=== PATIENT | male | born 1965 | race Caucasian/White ===

== ENCOUNTER 2023-04-29 12:40 | Emergency (ER) | payer OTHER ==
[~2023-04-29] VITALS: Ht 175.3 cm; Wt 87.1 kg
[2023-04-29 13:27] LABS: BASOPHILS ABSOLUTE AUTO 0.06 K/mm3 (0.00-0.23); BASOPHILS PERCENT AUTO 1 % (0-2); EOSINOPHILS ABSOLUTE AUTO 0.21 K/mm3 (0.00-0.68); EOSINOPHILS PERCENT AUTO 2 % (0-6); Hematocrit 41.9 % (37.0-53.0); Hemoglobin 15.2 g/dL (13.5-17.5); IMMATURE GRAN ABSOLUTE AUTO 0.05 K/mm3 (0.00-0.10); IMMATURE GRAN PERCENT AUTO 0 % (0-1); LYMPHOCYTES ABSOLUTE AUTO 1.49 K/mm3 (0.84-5.20); LYMPHOCYTES PERCENT AUTO 12 % (21-46); MONOCYTES ABSOLUTE AUTO 0.77 K/mm3 (0.16-1.47); MONOCYTES PERCENT AUTO 6 % (4-13); Mean Corpuscular HGB 32.5 pg (26.0-34.0); Mean Corpuscular HGB Conc 36.3 g/dL (31.5-36.5); Mean Corpuscular Volume 90 fL (80-100); Mean Platelet Volume 9.1 fL (9.1-12.4); NEUTROPHILS ABSOLUTE AUTO 10.32 K/mm3 (1.96-9.15); NEUTROPHILS PERCENT AUTO 80 % (41-73); Platelet Count 212 K/mm3 (150-400); RDW Coefficient Variation 13.1 % (11.7-14.2); RDW Standard Deviation 42.4 fL (35.1-46.3); Red Blood Cell Count 4.67 M/mm3 (4.30-5.90)
[2023-04-29] MEDS ORDERED: Aspir 8181 MG PO (13:39)
[2023-04-29] MEDS ORDERED: MIRT30 PO (13:40)
[2023-04-29] MEDS ORDERED: Flecainide Acet50 MG PO (13:40)
[2023-04-29] MEDS ORDERED: BUSPIRONE HCL30 M1 PO (13:40)
[2023-04-29] MEDS ORDERED: METO25 (13:40)
[2023-04-29] MEDS ORDERED: FINA5 PO (13:41)
[2023-04-29] MEDS ORDERED: PANT40 (13:41)
[2023-04-29 13:47] LABS: Albumin, Blood 3.9 g/dL (3.4-5.0); Albumin/Globulin Ratio 1.1 (0.8-1.8); Bilirubin, Total 0.5 mg/dL (0.1-1.0); Bun/Creatinine Ratio 13.9 (12.0-20.0); Creatinine, Blood 1.08 mg/dL (0.60-1.20); Globulin, Blood 3.4 g/dL (2.2-4.0); Potassium, Blood 3.9 mmol/L (3.5-5.5); Total Protein, Blood 7.3 g/dL (6.4-8.2)
[2023-04-29 15:15] VITALS: BP 141/90
== END 2023-04-29 15:35 | disposition home or self-care (01) ==
LOC: ER 12:40
PROVIDERS: Physician Assistant
DX: R07.89 Other chest pain (principal); I48.91 Unspecified atrial fibrillation; Z88.5 Allergy status to narcotic agent; Z79.899 Other long term (current) drug therapy; Z79.82 Long term (current) use of aspirin
CPT/HCPCS: 71046; 80053; 83880; 84484; 85025; 85379; 93005; 93010; 96374; 99285-25; J1885

== ENCOUNTER 2023-05-25 08:42 | Emergency (ER) | payer OTHER ==
[~2023-05-25] VITALS: Ht 175.3 cm; Wt 86.2 kg
[~2023-05-25 08:42] MED LIST: Aspir 8181 MG PO; BUSPIRONE HCL30 M1 PO; FINA5 PO; Flecainide Acet50 MG PO; METO25 PO; MIRT30 PO; PANT40 PO
[2023-05-25 13:00] VITALS: BP 126/83
== END 2023-05-25 13:02 | disposition home or self-care (01) ==
LOC: ER 08:42
DX: R51.9 Headache, unspecified (principal); I48.91 Unspecified atrial fibrillation; Z79.82 Long term (current) use of aspirin; Z79.899 Other long term (current) drug therapy; Z88.5 Allergy status to narcotic agent
CPT/HCPCS: 70450; 96374; 96375; 99284-25; J0780; J1200; J1885